=== PATIENT | male | born 1940 | race Caucasian/White ===

== ENCOUNTER 2018-03-31 08:20 | Emergency (ER) | payer MEDICARE ==
[~2018-03-31] VITALS: Ht 177.8 cm; Wt 86.0 kg
[~2018-03-31 08:20] MED LIST: AFEDITAB60 MG OR; ALPRAZOLAM0.5 MG PO; AUGMENTIN875TAB PO; BABY ASPIRIN81 MG OR; CELEBREX200 M1 PO; CHERATUSSIN PO; CIPRO500 MG OR; FLAGYL500 MG OR; FLEXERIL OR; HYDROCHLOROT25 MG OR; LOVASTATIN40 M1 OR; MEDDOSEPAK PO; MIRALAX3350 NF PO; MULT VITAMIN OR; NEURONTIN300 MG PO; POTASSIUM99 MG OR; PREDNISONE20 MG PO; PRILOSEC20 MG OR; PROCARDIA XL30 MG OR; PSEUDOEPHEDRINE30 MG PO; REGLAN10 MG OR; SUDAFE1 OR; TOPROL XL100 MG OR; TYLENOL # 31 TA1 PO; ULTRAM50 M1 OR
[2018-03-31] MEDS ORDERED: LOSARTAN POTASS50 MG PO (08:32)
[2018-03-31] MEDS ORDERED: AMLODIPINE5 MG PO (08:32)
[2018-03-31] MEDS ORDERED: HYDROCHL PO (08:33)
[2018-03-31] MEDS ORDERED: TAMSULOSIN HCL0.4 MG PO (08:33)
[2018-03-31] MEDS ORDERED: PROPRANOLOL PO (08:33)
[2018-03-31] MEDS ORDERED: PERCOCET 5/325M1 TAB PO (08:34)
[2018-03-31] MEDS ORDERED: BUSPAR10 M1 PO (08:34)
[2018-03-31] MEDS ORDERED: FLEXERIL PO (09:49)
[2018-03-31] MEDS ORDERED: LORTAB 1010 MG PO (09:49)
[2018-03-31] MEDS ORDERED: PERCOCET 10/31 COMBO PO (10:05)
[2018-03-31 11:01] VITALS: BP 132/72
== END 2018-03-31 12:40 | disposition home or self-care (01) ==
LOC: ED 08:20
DX: M51.16 Intervertebral disc disorders with radiculopathy, lumbar region (principal); I10 Essential (primary) hypertension; K21.9 Gastro-esophageal reflux disease without esophagitis; M19.90 Unspecified osteoarthritis, unspecified site

== ENCOUNTER → 2018-04-25 | Outpatient (REF) | payer MEDICARE ==
[~2018-04-25] MED LIST changes: +AMLODIPINE5 MG PO; +BUSPAR10 M1 PO; +FLEXERIL PO; +HYDROCHL PO; +LORTAB 1010 MG PO; +LOSARTAN POTASS50 MG PO; +PERCOCET 10/31 COMBO PO; +PERCOCET 5/325M1 TAB PO; +PROPRANOLOL PO; +TAMSULOSIN HCL0.4 MG PO
== END | disposition home or self-care (01) ==
LOC: DI 08:59
PROVIDERS: ATTEND Orthopaedic Surgery
PROC: 3E0R33Z Introduction of Anti-inflammatory into Spinal Canal, Percutaneous Approach (ICD-10-PCS; principal; 2018-04-25)
DX: M54.5 Low back pain (principal)

== ENCOUNTER → 2018-05-24 | Outpatient (REF) | payer MEDICARE | END | disposition home or self-care (01) | LOC: DI 10:10 | PROVIDERS: ATTEND Orthopaedic Surgery | PROC: 3E0R33Z Introduction of Anti-inflammatory into Spinal Canal, Percutaneous Approach (ICD-10-PCS; principal; 2018-05-24) | PROC: B01B1ZZ Fluoroscopy of Spinal Cord using Low Osmolar Contrast (ICD-10-PCS; 2018-05-24) | DX: M54.5 Low back pain (principal) ==

== ENCOUNTER 2022-03-21 06:05 | Observation (INO) | payer MEDICARE ==
[~2022-03-21] VITALS: Ht 177.8 cm; Wt 79.0 kg
[2022-03-21] VITALS (26 sets, daily range): BP systolic 121–199; BP diastolic 78–171
[~2022-03-21 06:05] MED LIST changes: +CYMBALTA60 MG PO; +D2000 ULTRA2000 UNIT PO; +FISH OIL1 CAP PO; +LAXATIVE5 M1 PO; +MYRBETRIQ25 MG PO; +NEXIUM20 M1 PO; +PREDNISONE5 MG PO; +ROSUVASTATIN CA10 MG PO; +TOPROL XL25 M1 PO
--- NOTE | 2022-03-21 06:05 | NUR ---
PT WHEELED TO ROOM # 13 ACCOMPANIED BY FOR BEDSIDE TRIAGE
[2022-03-21] MEDS ORDERED: PERCOCET1 TA4 PO (06:35)
[2022-03-21 06:52] LABS: BASO% 0.9 % (0-3); EOS% 3.4 % (0-8); HEMATOCRIT 44.3 % (39.0-50.0); HEMOGLOBIN 14.8 g/dl (14.0-18.0); IMMATURE GRANULOCYTES 0.4 % (0.0-5.0); LYMPH% 25.6 % (15-41); MEAN CELL VOLUME 98.4 fL CALC (80.0-100.0); MEAN CORPUSCULAR HGB 32.9 pG CALC (26.0-32.0); MEAN CORPUSCULAR HGB CONC 33.4 g/dL CAL (32.0-36.0); MONO% 14.2 % (2-13); NEUT# 5.06 thou/uL (1.82-7.42); NEUT% 55.5 % (42-76); RED BLOOD COUNT 4.5 mill/uL (4.70-6.10); RED CELL DISTRI WIDTH 13.2 % (11.5-15.5)
[2022-03-21 07:06] LABS: INTERNATIONAL NORMALIZED RATIO 1.1 RATIO (0.7-1.3); PROTHROMBIN TIME 10.8 SECONDS (9.0-12.5)
[2022-03-21 07:07] LABS: ALBUMIN 4.2 g/dL (3.2-5.0); ALKALINE PHOSPHATASE 77 u/l (38-126); BUN 22 mg/dL (8-23); BUN/CREATININE RATIO 25 (12-20 (CALC)); CARBON DIOXIDE 29 mmol/l (22-30); CHLORIDE 101 mmol/l (95-108); CREATININE 0.9 mg/dL (0.7-1.3); GFR FOR AFR.AMER. > 60 ML/MIN (>=60 (CALC)); GFR OTHER RACES > 60 ML/MIN (>=60 (CALC)); MAGNESIUM 1.8 mg/dL (1.6-2.3); SGOT/AST 26 u/l (19-48); SODIUM 136 mmol/l (137-146); TOTAL PROTEIN 6.7 g/dL (6.3-8.2)
[2022-03-21 07:14] LABS: ANION GAP 10 (6-22 (CALC)); BILIRUBIN, TOTAL 1.2 mg/dL (0.0-1.4); POTASSIUM 3.6 mmol/l (3.5-5.1)
[2022-03-21 07:32] LABS: ETHYL ALCOHOL 0 mg/dl (0-30)
--- NOTE | 2022-03-21 07:32 | NUR ---
pt states he has not taken his bp meds yet today. states that he takes them in the morning
--- NOTE | 2022-03-21 08:26 | NUR ---
pt back from ct scan, resting on stretcher, no distress.
[2022-03-21 08:46] LABS: URINE BILIRUBIN - DIPSTICK NEGATIVE (NEGATIVE); URINE BLOOD DIPSTICK NEGATIVE (NEGATIVE); URINE COLOR YELLOW; URINE GLUCOSE - DIPSTICK NEGATIVE (NEGATIVE); URINE KETONE TRACE mg/dL (NEGATIVE); URINE LEUK ESTERASE NEGATIVE (NEGATIVE); URINE PROTEIN - DIPSTICK NEGATIVE (NEG-TRACE); URINE SPECIFIC GRAVITY 1.015; URINE UROBILINOGEN - DIPSTICK 0.2 E.U./dL (0.2)
[2022-03-21 08:48] LABS: URINE NITRITE - DIPSTICK NEGATIVE (Negative)
--- NOTE | 2022-03-21 09:30 | NUR ---
Reassessment of patient completed. No distress noted.
--- NOTE | 2022-03-21 10:30 | NUR ---
Reassessment of patient completed. No distress noted.
--- NOTE | 2022-03-21 11:30 | NUR ---
Reassessment of patient completed. No distress noted.
--- NOTE | 2022-03-21 12:37 | NUR ---
report called to inpatient nurse, all questions anwsered at this time
--- NOTE | 2022-03-21 12:45 | NUR ---
Admission Note Report Given to: ICU NURSE Transported by: Wheelchair X Stretcher Transported with: X Nurse Transporter X Patent IV O2 X Power And Recovery Shift Engineer Location: X ICU [facility]
--- NOTE | 2022-03-21 13:51 | NUR ---
PT ARRIVES TO ROOM 4 IN ICU, SEEN AWAKE AND INTERACTIVE. PT QUITE WEAK, DID NOT COMPLETELY BEAR HIS WEIGHT FROM STRETCHER TO BED. SPEECH IS HESITANT AND PT IS HAVING WORD FINDING DIFFICULTY. IS AT BEDSIDE, STATES THAT THIS HAS BEEN GOING ON FOR 3 DAYS.
--- NOTE | 2022-03-21 18:25 | NUR ---
1630 TELEPHONE REPORT RECEIVED FROM WALKER COHEN IN ICU. PT TRANSFERRED TO ROOM 263 VIA WC WITH ALL PERSONAL BELONGINGS AT 1700. PT ALERT TO SELF ONLY, PT PLEASANTLY CONFSUED. PT REORIENTED SEVERAL TIMES. RESPIRATIONS EVEN AND UNLABORED. SPOKE TO MARGE TO GET INFORMATION FOR ADMISSION PT HAS COGNITIVE IMPAIRMENTS AT [facility]SI TIME. TELE IN PLACE. IV TO RIGHT AC INFUSING NS @ 1OOML/HR. SAFETY PRECAUTIONS IN PLACE. BED ALARM ACTIVATED.
--- NOTE | 2022-03-21 20:00 | NUR ---
RECEIVED REPORT FROM DAY SHIFT RN. PT IS RESTING IN BED IN LOW SEMI-PRESTON'S POSITION, AWAKE, WATCHING TV. ASSESSMENT COMPLETED. PT IS A&O WITH CONFUSION NOTED. PT IS ABLE TO MAKE NEEDS KNOWN. NO SIGNS OR SYMPTOMS OF PAIN OR DISCOMFORT NOTED NOR VERBALIZED BY PT AT THIS TIME. PT IS ON TELEMETRY, MONITORED BY ED. IV IS PATENT AND FLUSHES WELL. PT IS ON ROOM AIR, BREATHING IS EVEM AND UNLABORED. PT HAS A PAIN STIMULATOR ON LOWER BACK RIGHT ON TOP OF LEFT BUTTOCK. CALL LIGHT AND BEDSIDE TABLE WITHIN REACH, SAFETY PRECAUTIONS IN PLACE.
[2022-03-22] VITALS (7 sets, daily range): BP systolic 112–199; BP diastolic 63–122
--- NOTE | 2022-03-22 00:01 | NUR ---
PT IS RESTING IN BED IN SUPINE POSITON, EYES CLOSED. BREATHING IS EVEN AND UNLABORED. CALL LIGHT AND BEDSIE TABLE WITHIN REACH, SAFETY PRECAUTIONS IN PLACE.
--- NOTE | 2022-03-22 03:55 | NUR ---
PT IS RESTING IN BED IN SUPINE POSITION, AWAKE. PT IS A&O TO SELF WITH CONFUSION. PT PULLED OUT HIS IV, WILL ATTEMPT TO PLACE A NEW ONE. BREATHING IS EVEN AND UNLABORED. PT PULLED OFF SCREEN MACHINE OPERATOR AND LEADS, PLACING NEW LEADS AND MONITOR BACK ON. CALL LIGHT AND BEDSIDE TABLE WITHIN REACH. SAFETY PRECAUTIONS IN PLACE.
--- NOTE | 2022-03-22 05:20 | NUR ---
PATIENT B/P ELEVATED . APRESOLINE 10 MG I.V GIVEN PER ORDERED. WILL MONITOR B/P.
--- NOTE | 2022-03-22 08:00 | NUR ---
GOT REPORT FROM MASTER COSMETOLOGIST NURSE. PATIENT ASSESSED, AOX2. PATIENT'S SPOUSE AT BEDSIDE. PATIENT DENIES ANY DISTRESS OR DISCOMFORT. CALL LIGHT AND BEDISDE TABLE WITHIN REACH. REPOSITIONED PATIENT AND STRAIGHTEN OUR COVERS. FALL PRECAUTIONS IN PLACE.
--- NOTE | 2022-03-22 12:00 | NUR ---
REPOSITIONED PATIENT AND ALLOWED PATIENT TO STAND FOR A BIT WITH THE NA AND MYSELF ASSISTING. ASSESSED PATIENT BACK TO BED AND RECOVERED. DOES NOT NEED ANYTHING AT THIS TIME. CALL LIGHT AND BEDSIDE TABLE WITH IN REACH. FALL PRECAUTIONS IN PLACE.
--- NOTE | 2022-03-22 16:00 | NUR ---
PATIENT IS RESTING IN BED. FALL PRECAUTIONS IN PLACE AND CALL LIGHT/BEDSIDE TABLE ARE WITHIN REACH.
--- NOTE | 2022-03-22 19:15 | NUR ---
DR. CAPUTO, NEUROLOGIST ON THE PHONE WITH PT FOR CONSULT.
--- NOTE | 2022-03-22 20:00 | NUR ---
RECEIVED REPORT FROM DAY SHIFT RN. PT IS RESTING IN BED IN LOW SEMI-PRESTON'S POSITION, AWAKE, WATCHING TV. ASSESSMENT COMPLETED. PT IS A&O TO SELF AND ABLE TO COMMUNICATE NEEDS WITH STAFF. NO SIGS OR SYMPTOMS FOR PAIN OR DISTRESS NOTED NOR VERBALIZED BY PT AT THIS TIME. TELEMETRY IN PLACE, MONITORED BY ED. PT IS ON ROOM AIR, BREATHING IS EVEN AND UNLABORED. IV IS PATENT AND FLUSHES WELL. RECEIVED NEW ORDERS FROM NEUROLOGIST. CALL LIGHT AND BEDSIDE TABLE WITHIN REACH, SAFETY PRECAUTIONS IN PLACE.
[2022-03-22 22:01] LABS: CHOLESTEROL HDL RATIO 3.8 (<4.4 (CALC))
--- NOTE | 2022-03-23 00:33 | NUR ---
PT IS RESTINGIN BED IN SUPINE POSITION, AWAKE. PT MOVING AROUNDIN BED, TRYING TO REMOVE BRIEF AND BLANKETS. ON ROOM AIR, BREATHING EVEN AND UNLABORED. CONFUSION NOTED. STATES HE'S HAVING ABDOMINAL PAIN BUT ALSO SATES HE'S DOING BETTER, WILL GIVE PRN MEDICATION. CALL LIGHT AND BEDSIDE TABLE WITHIN REACH. SAFETY PRECAUTIONS IN PLACE.
--- NOTE | 2022-03-23 04:00 | NUR ---
PT IS RESTING IN BED IN SUPINE POSITION, AWAKE. PT IS ON TELEMETRY, MONITORED BY ED. NO SIGNS OF PAIN OR DISTRESS NOTED AT THIS TIME. BREATHING IS EVEN AND UNLABORED. SALES AND SERVICE ASSOCIATE IN ROOM. CALL LIGHT AND BEDSIDE TABLE WITHIN REACH, SAFETY PRECAUTIONS IN PLACE.
[2022-03-23 04:09] VITALS: BP 107/73
--- NOTE | 2022-03-23 04:30 | NUR ---
NEW IV PLACE BY MEGHAN Daniels RN. [employer] WAS NOT ABLE TO DRAW LABS AFTER SEVERAL ATTEMPTS DUE TO PT MOVING AROUND. I WILL ATTEMPT TO DRAW LABS.
--- NOTE | 2022-03-23 04:40 | NUR ---
NICK LABS AND GAVE THEM TO [facility].
[2022-03-23 06:09] LABS: BASO% 0.9 % (0-3); EOS% 2.9 % (0-8); HEMATOCRIT 40.5 % (39.0-50.0); HEMOGLOBIN 13.2 g/dl (14.0-18.0); IMMATURE GRANULOCYTES 0.3 % (0.0-5.0); LYMPH% 28.4 % (15-41); MEAN CELL VOLUME 98.1 fL CALC (80.0-100.0); MEAN CORPUSCULAR HGB CONC 32.6 g/dL CAL (32.0-36.0); MONO% 19.1 % (2-13); NEUT# 3.17 thou/uL (1.82-7.42); NEUT% 48.4 % (42-76); RED BLOOD COUNT 4.13 mill/uL (4.70-6.10); RED CELL DISTRI WIDTH 12.9 % (11.5-15.5)
[2022-03-23 06:11] LABS: ALBUMIN 3.7 g/dL (3.2-5.0); ALKALINE PHOSPHATASE 57 u/l (38-126); ANION GAP 7 (6-22 (CALC)); BILIRUBIN, TOTAL 0.8 mg/dL (0.0-1.4); BUN 15 mg/dL (8-23); BUN/CREATININE RATIO 18 (12-20 (CALC)); CARBON DIOXIDE 26 mmol/l (22-30); CHLORIDE 105 mmol/l (95-108); CREATININE 0.9 mg/dL (0.7-1.3); GFR FOR AFR.AMER. > 60 ML/MIN (>=60 (CALC)); GFR OTHER RACES > 60 ML/MIN (>=60 (CALC)); POTASSIUM 3.3 mmol/l (3.5-5.1); SGOT/AST 28 u/l (19-48); SODIUM 134 mmol/l (137-146); TOTAL PROTEIN 6.2 g/dL (6.3-8.2)
[2022-03-23 06:47] VITALS: BP 177/61
[2022-03-23 07:10] VITALS: BP 154/71
--- NOTE | 2022-03-23 10:10 | NUR ---
PT ASSESSED. VS STABLE. NO C/O CP OR SOB. PT UP IN [facility]. PTS MENTATION SEEMS IMPROVED FROM WHAT WAS RECIEVED IN REPORT. HE DID NOT REALL WHO THE PRESIDENT IS, BUT STATES HE DOES NOT LIKE HIM AND ANDREW WAS HIS FAVORITE. KNOWS . PT NOT SURE OF LOCATION BUT KNOWS ITS A HOSPITAL. CALL GAR[place]AY WITHIN REACH. WILL CONTINUE TO MONITOR.
--- NOTE | 2022-03-23 14:10 | NUR ---
VSS. NO CHANGES. DULCOLAX SUPP ORDERED, WAITING FOR PT TO FINISH TESTING DOWNSTAIRSE FIRST BEFORE GIVING.
[2022-03-23 14:45] VITALS: BP 141/75
[2022-03-23 19:14] VITALS: BP 134/87
--- NOTE | 2022-03-23 20:00 | NUR ---
RECEIVED REPORT FROM DAY SHIFT RN. PT IS RESTING IN ROOM IN SUPINE POSITION, AWAKE, WATCHING TV. PT IS A&0X2 WITH SOME CONFUSION NOTED. PT DENIES ANY PAIN OR DISCOMFORT AT THIS TIME. PT STATES "I FEEL BETTER TODAY". PT IS ON ROOM AIR, BREATHING IS EVEN AND UNLABORED. BOTH IVS ARE PATENT AND FLUSH WELL. TELEMETRY IN PLACE, MONITORED BY ED. CALL LIGHT AND BEDSIDE TABLE WITHIN REACH. SAFETY PRECAUTIONS IN PLACE.
[2022-03-24 00:21] VITALS: BP 129/70
--- NOTE | 2022-03-24 00:53 | NUR ---
PT IS RESTING IN BED IN SUPINE POSITION, EYES CLOSED. NO SIGNS OF PAIN OR DISTRESS NOTED AT THIS TIME. BREATHING EVEN AND UNLABORED. CALL LIGHT AND BEDSIDE TABLE WITHIN REACH.
--- NOTE | 2022-03-24 04:00 | NUR ---
PT IS SITTING ON THE SIDE OF THE BED, AWAKE. PT IS A&O WITH SOME CONFUSION NOTED. PT PULLED OUT LAC IV. PULLED TELEMTRY LEADS OFF, PLACED BACK ON. CLEANED UP PT'S IV SITE AND BED LINENS. TELEMETRY MONITORED BY ED. BREATHING EVEN AND UNLABORED. EDUCATED PT ON IV CARE. CALL LIGHT AND BEDSIDE TABLE WITHIN REACH, SAFETY PRECAUTIONS IN PLACE.
[2022-03-24 06:26] VITALS: BP 151/81
[2022-03-24 06:43] LABS: ALBUMIN 3.7 g/dL (3.2-5.0); ALKALINE PHOSPHATASE 56 u/l (38-126); BILIRUBIN, TOTAL 0.9 mg/dL (0.0-1.4); BUN 20 mg/dL (8-23); BUN/CREATININE RATIO 24 (12-20 (CALC)); CARBON DIOXIDE 22 mmol/l (22-30); CHLORIDE 110 mmol/l (95-108); CREATININE 0.8 mg/dL (0.7-1.3); GFR FOR AFR.AMER. > 60 ML/MIN (>=60 (CALC)); GFR OTHER RACES > 60 ML/MIN (>=60 (CALC)); SGOT/AST 29 u/l (19-48); SODIUM 138 mmol/l (137-146); TOTAL PROTEIN 5.9 g/dL (6.3-8.2)
[2022-03-24 06:45] LABS: EOS% 3.6 % (0-8); HEMATOCRIT 38.6 % (39.0-50.0); HEMOGLOBIN 12.5 g/dl (14.0-18.0); IMMATURE GRANULOCYTES 0.2 % (0.0-5.0); LYMPH% 30.2 % (15-41); MEAN CELL VOLUME 100.3 fL CALC (80.0-100.0); MEAN CORPUSCULAR HGB 32.5 pG CALC (26.0-32.0); MEAN CORPUSCULAR HGB CONC 32.4 g/dL CAL (32.0-36.0); MONO% 16.9 % (2-13); NEUT# 2.9 thou/uL (1.82-7.42); NEUT% 48.1 % (42-76); RED BLOOD COUNT 3.85 mill/uL (4.70-6.10); RED CELL DISTRI WIDTH 13.1 % (11.5-15.5)
[2022-03-24 06:47] LABS: ANION GAP 11 (6-22 (CALC))
[2022-03-24 07:37] VITALS: BP 151/81
--- NOTE | 2022-03-24 09:08 | NUR ---
PATIENT SITTING IN CHAIR WITH SPOUSE IN ROOM. REPORTS NO PAIN. NEURO ASSESSMENT DONE PATIENT REPORTS FEELING NORMAL. PATIENT PIV WORKING PROPERLY. MORNING MEDS GIVEN WITH NO ISSUES SWALLOWING. PATIENT ATE ALL HIS BREAKFAST. CALL LIGHT WITHIN REACH. WILL CONTINUE TO MONITOR.
[2022-03-24 09:09] VITALS: BP 151/81
[2022-03-24] MEDS ORDERED: ELIQUIS5 MG PO (11:54)
--- NOTE | 2022-03-24 14:25 | NUR ---
REVIEWED DISCHARGE INSTRUCTIONS WITH PT, PT AND PT DAUGHTERS. THIS RN REMOVED IV WITH CATHETER INTACT AND COVERED WITH COBAN WITH NO S/S OF BLEEDING. PT TELE TAKEN OFF AND TELE NOTIFIED. PT AND FAMILY HAVE NO MORE QUESTIONS AT THIS TIME. PT TAKEN DOWN STAIRS IN WC BY VOLUNTEER WITH NO S/S OF DISTRESS
== END 2022-03-24 14:24 | disposition home or self-care (01) ==
LOC: ED 06:05 → ED-I 06:44 → ED 10:12 → MS2 10:13 → ICU 10:13 → MS2 17:15
PROVIDERS: Family Medicine; Nurse Practitioner Family; Psychiatry & Neurology Neurology; ADMIT Internal Medicine; ATTEND Internal Medicine
DX: R41.0 Disorientation, unspecified (principal); R47.01 Aphasia; I65.22 Occlusion and stenosis of left carotid artery; I67.2 Cerebral atherosclerosis; K59.00 Constipation, unspecified; I10 Essential (primary) hypertension; I48.20 Chronic atrial fibrillation, unspecified; E78.5 Hyperlipidemia, unspecified; K21.9 Gastro-esophageal reflux disease without esophagitis; G89.29 Other chronic pain; Z79.891 Long term (current) use of opiate analgesic; Z95.0 Presence of cardiac pacemaker; Z79.899 Other long term (current) drug therapy; Z96.82 Presence of neurostimulator; Z79.82 Long term (current) use of aspirin; Z20.822 Contact with and (suspected) exposure to COVID-19
CPT/HCPCS: J1650; Q3014; Q9967